=== PATIENT | male | born 1965 | race Caucasian/White ===

== ENCOUNTER 2020-11-09 14:59 | Emergency (ER) | payer MEDICAID ==
[~2020-11-09] VITALS: Ht 177.8 cm; Wt 91.0 kg
[2020-11-09] MEDS ORDERED: CHLORDIAZEPOXIDE 25MG CAPSULE PO ONE (17:00)
[2020-11-09 17:18] LABS: BASOPHILS % 0.5 % (0.0-2.0); EOSINOPHILS % 0.3 % (0.0-5.0); HEMATOCRIT. 42.9 % (42.0-52.0); HEMOGLOBIN. 14.7 g/dL (14.0-18.0); LYMPHOCYTES % 10.9 % (20.0-50.0); MEAN CORPUSCULAR HEMOGLOBIN 32.9 pg (28.0-32.0); MEAN CORPUSCULAR VOLUME 95.9 fL (80.0-94.0); MEAN PLATELET VOLUME 7.6 fl (7.4-10.4); NEUTROPHILS % 81.3 % (40.0-76.0); PLATELET 173 x1000/uL (130-400); RED BLOOD CELL COUNT 4.47 mill/uL (4.7-6.1); RED CELL DISTRIBUTION WIDTH 14.3 % (11.6-14.6)
[2020-11-09 17:21] LABS: CHLORIDE 99 mEq/L (98-107)
[2020-11-09 17:23] LABS: ETHANOL BLOOD < 10 mg/dL
[2020-11-09 18:19] LABS: CLARITY URINE CLEAR (CLEAR); COLOR URINE YELLOW (YELLOW); KETONES URINE NEGATIVE (NEGATIVE); LEUKOCYTE ESTERASE URINE NEGATIVE (NEGATIVE); NITRITE URINE NEGATIVE (NEGATIVE); OCCULT BLOOD URINE NEGATIVE (NEGATIVE); PROTEIN URINE NEGATIVE (NEGATIVE); SPECIFIC GRAVITY URINE 1.013 (1.005-1.030); UROBILINOGEN URINE 0.2 E.U./dL (0.2-1.0)
[2020-11-09 18:28] LABS: *AMPHETAMINES SCREEN URINE NEGATIVE (NEGATIVE); *BARBITURATES SCREEN URINE NEGATIVE (NEGATIVE); *BENZODIAZEPINES SCREEN URINE NEGATIVE (NEGATIVE)
[2020-11-09 18:29] LABS: *COCAINE SCREEN URINE NEGATIVE (NEGATIVE); CANNABINOID URINE SCREEN PRESUMTIVE POSITIVE (NEGATIVE); METHADONE URINE SCREEN NEGATIVE (NEGATIVE); OPIATES URINE SCREEN NEGATIVE (NEGATIVE); PHENCYCLIDINE URINE SCREEN NEGATIVE (NEGATIVE)
[2020-11-09 19:46] VITALS: BP 115/92
== END 2020-11-09 19:50 ==
LOC: ER 14:59
DX: G40.909 Epilepsy, unspecified, not intractable, without status epilepticus (principal); F17.210 Nicotine dependence, cigarettes, uncomplicated; E11.9 Type 2 diabetes mellitus without complications; I10 Essential (primary) hypertension; F99 Mental disorder, not otherwise specified
CPT/HCPCS: 36415; 80053; 80305; 80320; 81003; 85025; 93005; 99285; G0480

== ENCOUNTER 2024-11-22 18:59 | Emergency (ER) | payer MEDICAID ==
[~2024-11-22] VITALS: Ht 177.8 cm; Wt 70.0 kg
[2024-11-23] MEDS ORDERED: IBUP-2029 MT (11:10)
== END 2024-11-22 19:08 | disposition left against medical advice (07) ==
LOC: ER 19:07
DX: R56.9 Unspecified convulsions (principal); Z53.21 Procedure and treatment not carried out due to patient leaving prior to being seen by health care provider

== ENCOUNTER 2024-11-23 07:45 | Emergency (ER) | payer MEDICAID ==
[~2024-11-23] VITALS: Ht 167.6 cm; Wt 54.0 kg
[2024-11-23 07:53] VITALS: O2SAT 98
[2024-11-23 10:12] VITALS: TEMP 37; O2SAT 98
[2024-11-23 10:14] VITALS: BP 100/66; PULSE 105; RESP 20
[2024-11-23] MEDS: HYDROCODONE/ACETAMINOPHEN 5/325MG TABLET PO ONE (10:14)
[2024-11-23] MEDS ORDERED: IBUP-2029 MT (11:10)
== END 2024-11-23 11:50 | disposition home or self-care (01) ==
LOC: ER 07:45
DX: M25.551 Pain in right hip (principal); M25.552 Pain in left hip; R56.9 Unspecified convulsions; Z04.89 Encounter for examination and observation for other specified reasons; Y08.89XA Assault by other specified means, initial encounter; Y93.89 Activity, other specified; Y92.89 Other specified places as the place of occurrence of the external cause; Y99.8 Other external cause status
CPT/HCPCS: 72170; 99283; Z7610